=== PATIENT | female | born 1980 | race Caucasian/White ===

== ENCOUNTER 2020-10-31 07:55 | Day surgery (SDC) | payer OTHER ==
[2020-10-31] MEDS ORDERED: Xylocaine 1% Vial 30 ML PF IJ ONE (07:56)
[2020-10-31] MEDS ORDERED: Depo-Medrol 40 MG/ML IM ONE (07:56)
[2020-10-31] MEDS ORDERED: Sodium Chloride 0.9(Preservative Free) 10 ML IJ ONE (07:56)
[2020-10-31] MEDS ORDERED: Versed 2 MG/2 ML Injection ONE (08:35)
[2020-10-31] MEDS ORDERED: DIPRIVAN 200 MG/20 ML IV ONE (09:05)
--- NOTE | 2020-10-31 16:12 | XRAY ---
16 seconds fluoroscopy time in surgery for lumbar JULY.
[2020-10-31] MEDS ORDERED: Lactated Ringers 1,000 ML IV ONE (16:38)
--- NOTE | 2020-11-01 21:38 | XRAY ---
Indication: Lumbar JULY. Intraoperative fluoroscopy was provided for 16 seconds. 3 digital spot images submitted for interpretation demonstrate the needle tip in the midline projected posterior to the L4-L5 interspace. A small amount of contrast has been injected for needle tip placement. Correlate with intraoperative findings/report.
== END 2020-10-31 10:24 | disposition home or self-care (01) ==
LOC: SDC-PAIN 07:55
PROVIDERS: ATTEND Psychiatry & Neurology Pain Medicine
DX: M54.16 Radiculopathy, lumbar region (principal); E11.9 Type 2 diabetes mellitus without complications; I10 Essential (primary) hypertension; J45.909 Unspecified asthma, uncomplicated; F41.8 Other specified anxiety disorders; Z79.899 Other long term (current) drug therapy
CPT/HCPCS: 62323; 72100; 77003; 82947; 84703; J1030; J2001; J2250; J2704; Q9966

== ENCOUNTER 2020-12-19 10:02 | Day surgery (SDC) | payer OTHER ==
[2020-12-19] MEDS ORDERED: Depo-Medrol 40 MG/ML IM ONE (10:03)
[2020-12-19] MEDS ORDERED: Sodium Chloride 0.9(Preservative Free) 10 ML IJ ONE (10:03)
[2020-12-19] MEDS ORDERED: Versed 2 MG/2 ML Injection ONE (10:25)
[2020-12-19] MEDS ORDERED: DIPRIVAN 200 MG/20 ML IV ONE (11:03)
--- NOTE | 2020-12-19 14:53 | XRAY ---
Indication: Right L4-S1 transforaminal JULY. Intraoperative fluoroscopy provided for 25 seconds. 3 digital spot image submitted for interpretation demonstrates posterior needle tips projecting over the expected right L4 and L5 nerve roots. Small amount of contrast injected for needle tip placement. Correlate with intraoperative findings/report.
--- NOTE | 2020-12-19 15:15 | XRAY ---
25 seconds of fluoroscopy was used in surgery for a right L4-L5, L5-S1 transforaminal JULY.
[2020-12-19] MEDS ORDERED: Lactated Ringers 1,000 ML IV ONE (16:01)
== END 2020-12-19 11:28 | disposition home or self-care (01) ==
LOC: SDC-PAIN 10:02
PROVIDERS: ATTEND Psychiatry & Neurology Pain Medicine
DX: M54.16 Radiculopathy, lumbar region (principal); F41.9 Anxiety disorder, unspecified; F32.9 Major depressive disorder, single episode, unspecified; I10 Essential (primary) hypertension; J45.909 Unspecified asthma, uncomplicated; Z79.899 Other long term (current) drug therapy
CPT/HCPCS: 64483; 64484; 72100; 77003; 82947; 84703; J1030; J2250; J2704; Q9966